=== PATIENT | male | born 1965 | race American Indian/Alaskan Native ===

== ENCOUNTER 2019-11-26 19:52 | Emergency (ER) | payer BC ==
[2019-11-26] MEDS ORDERED: levETIRAcetam 1000 MG/NS 0.75% 1,000 MG/100 ML BAG IV ONE (20:24)
--- NOTE | 2019-11-26 20:28 | Emergency Department Report ---
ED Seizure HPI - General Chief Complaint: Seizure Stated Complaint: PASSED OUT Time Seen by Provider: 11/26/19 20:19 Source: patient, family Mode of arrival: Ambulatory Limitations: No Limitations - History of Present Illness Initial Comments: Patient is 54 years old male with no significant past medical history. Patient presented to the ER accompanied by his sister for evaluation of possible seizure. Sister stated that patient was in the barbershop getting his hair cut when all of a sudden he started jerking, eyes rolled back and wet himself. Pa tient sister stated that this is continued for approximately 2 minutes and patient went to sleep after that. Patient stated that he had similar episode in 1998. Sister also stated that patient cousin in has history of seizure. MD Complaint: seizure -: Sudden, minutes(s) Description of Episode: loss of consciousness, tonic-clonic movement, bladder incontinence, post-event confusion Witnessed:: Yes Trauma: No Seizure History: none Possible Precipitating Event: none Associated Symptoms: denies other symptoms Treatments Prior to Arrival: none - Related Data Allergies Allergy/AdvReac Type Severity Reaction Status Date / Time No Known Allergies Allergy Verified 11/26/19 19:56 ED Review of Systems ROS: Stated complaint: PASSED OUT Other details as noted in HPI Comment: All other systems reviewed and negative Constitutional: denies: chills, fever Respiratory: denies: cough, shortness of breath Cardiovascular: denies: chest pain Gastrointestinal: denies: abdominal pain, nausea, vomiting Musculoskeletal: denies: back pain Neurological: denies: headache ED Physical Exam - General Limitations: No Limitations General appearance: alert, in no apparent distress - Head Head exam: Present: atraumatic, normocephalic, normal inspection - Eye Eye exam: Present: normal appearance - ENT ENT exam: Present: normal exam, normal orophraynx, mucous membranes moist - Neck Neck exam: Present: normal inspection, full ROM. Absent: tenderness, meningismus - Respiratory Respiratory exam: Present: normal lung sounds bilaterally - Cardiovascular Cardiovascular Exam: Present: regular rate, normal rhythm, normal heart sounds - GI/Abdominal GI/Abdominal exam: Present: soft, normal bowel sounds. Absent: distended, tenderness, guarding, rebound, rigid, organomegaly, mass, bruit, pulsatile mass, hernia - Extremities Exam Extremities exam: Present: normal inspection, full ROM, normal capillary refill - Back Exam Back exam: Present: normal inspection, full ROM. Absent: CVA tenderness (R), CVA tenderness (L) - Neurological Exam Neurological exam: Present: alert, oriented X3, CN II-XII intact, normal gait, reflexes normal. Absent: motor sensory deficit - Psychiatric Psychiatric exam: Present: normal mood - Skin Skin exam: Present: warm, intact, normal color ED Course Vital Signs 11/26/19 19:56 Temperature 97.5 F L Pulse Rate 70 Respiratory 18 Rate Blood Pressure 116/73 O2 Sat by Pulse 97 Oximetry ED Medical Decision Making - Lab Data Result diagrams: 11/26/19 20:53 11/26/19 21:38 - Radiology Data Radiology results: report reviewed - Medical Decision Making Patient is 54 years old male with no significant past medical history. Patient presented to the ER accompanied by his sister for evaluation of possible seizure. Sister stated that patient was in the barbershop getting his hair cut when all of a sudden he started jerking, eyes rolled back and wet himself. Patient sister stated that this is continued for approximately 2 minutes and patient went to sleep after that. Patient stated that he had similar episode in 1998. Sister also stated that patient cousin in has history of seizure. Patient remained asymptomatic in the ER. No seizure activity observed. Patient received Keppra [address] brain is negative for acute finding. Labs reviewed and is unremarkable. Patient given prescription for Keppra 500 mg twice a day and advised to follow-up with neurologist in the next 2 to 3 days and to return to the ER if he develop any new symptoms. Critical care attestation.: If time is entered above; I have spent that time in minutes in the direct care of this critically ill patient, excluding procedure time. ED Disposition Clinical Impression: Seizure Disposition: DC-01 TO HOME OR SELFCARE Is pt being admited?: No Condition: Stable Instructions: New-Onset Seizure in Adults (ED) Referrals: SOM CHOPRA MD [Referring] - 3-5 Days
[2019-11-26 21:04] LABS: Hemoglobin 12.8 gm/dl (11.8-15.2); Mean Corpuscular HGB Conc 34 % (32-34); Mean Corpuscular Volume 93 fl (84-94); Platelet Count 412 K/mm3 (140-440); Red Blood Count 4.07 M/mm3 (3.65-5.03); Red Cell Distribution Width 13.5 % (13.2-15.2)
--- NOTE | 2019-11-26 21:19 | Cat Scan Report ---
CT HEAD WITHOUT CONTRAST INDICATION: Seizure TECHNIQUE: All CT scans at this location are performed using CT dose reduction for ALARA by means of automated exposure control. COMPARISON: None available. FINDINGS: BRAIN: No hemorrhage or mass effect are seen. No evidence of acute infarction is noted. ORBITS: Normal as visualized. SOFT TISSUES OF HEAD: Normal. CALVARIUM: Normal. VISUALIZED PARANASAL SINUSES AND MASTOID AIR CELLS: Clear. ADDITIONAL FINDINGS: None. IMPRESSION: No acute intracranial abnormality. Signer Name: Shreyas Mena MD Signed: 11/26/2019 9:14 PM Workstation Name: [id number]
[2019-11-26 21:31] LABS: Alanine Aminotransferase TNR units/L (7-56); BUN/Creatinine Ratio TNR; Bilirubin,Direct TNR mg/dL (0-0.2); Blood Urea Nitrogen TNR mg/dL (9-20); Calcium TNR mg/dL (8.4-10.2)
[2019-11-26 21:32] LABS: Albumin TNR g/dL (3.9-5); Hemolysis Index TNR
[2019-11-26 22:20] LABS: Alanine Aminotransferase 80 units/L (7-56); Albumin 4.4 g/dL (3.9-5); BUN/Creatinine Ratio 13; Blood Urea Nitrogen 12 mg/dL (9-20); Calcium 8.9 mg/dL (8.4-10.2); Hemolysis Index 8
[2019-11-26 22:24] LABS: Basophils % (Manual) 0 % (0.0-1.8); Eosinophils % (Manual) 0 % (0.0-4.3); RBC Morphology Normal; Total Cells Counted 100
[2019-11-26 22:27] LABS: Bilirubin,Direct < 0.2 mg/dL (0-0.2)
[2019-11-27 04:22] VITALS: BP 119/72
== END 2019-11-27 00:10 | disposition home or self-care (01) ==
LOC: ED 19:52
DX: G40.909 Epilepsy, unspecified, not intractable, without status epilepticus (principal)
CPT/HCPCS: 36415; 70450; 80048; 80053; 80076; 85007; 85025; 96365; 99284; J1953; 80320; G0480

== ENCOUNTER 2021-02-11 09:00 | Emergency (ER) | payer BC, OTHER ==
--- NOTE | 2021-02-11 09:51 | XRay Report ---
CHEST PA AND LATERAL VIEWS INDICATION: CP, dizzy, WEAK,nervous. COMPARISON: None. FINDINGS: Support devices: None. Heart: Within normal limits. Lungs/Pleura: No acute pulmonary or pleural findings. IMPRESSION: 1. No acute findings. Signer Name: Zbigniew Mendez MD Signed: 02/11/2021 9:46 AM Workstation Name: [id number]
[2021-02-11 09:55] LABS: Basophils # (Auto) 0.1 K/mm3 (0.0-0.1); Basophils % (Auto) 0.8 % (0.0-1.8); Eosinophils % (Auto) 0.1 % (0.0-4.3); Hematocrit 35.3 % (35.5-45.6); Hemoglobin 11.8 gm/dl (11.8-15.2); Lymphocytes # (Auto) 1.6 K/mm3 (1.2-5.4); Lymphocytes % (Auto) 23.9 % (13.4-35.0); Mean Corpuscular HGB Conc 34 % (32-34); Mean Corpuscular Volume 96 fl (84-94); Monocytes # (Auto) 0.5 K/mm3 (0.0-0.8); Monocytes % (Auto) 7.5 % (0.0-7.3); Platelet Count 280 K/mm3 (140-440); Red Blood Count 3.68 M/mm3 (3.65-5.03); Red Cell Distribution Width 14.1 % (13.2-15.2)
[2021-02-11 10:19] LABS: Alanine Aminotransferase 28 units/L (7-56); Albumin 4.4 g/dL (3.9-5); BUN/Creatinine Ratio 16; Blood Urea Nitrogen 13 mg/dL (9-20); Calcium 8.9 mg/dL (8.4-10.2); Hemolysis Index 16
--- NOTE | 2021-02-11 10:54 | Event Note ---
ED Screening Note Date of service: 02/11/21 Time: 10:52 ED Screening Note: 55-year-old male presents to the ER today complaining of feeling dizzy, shaky all over/nervous, blurry vision and near syncope. Patient states that he woke up feeling bad this morning but symptoms got worse today while he was at work. He states he checked his blood pressure at work, it was 160/97 and recommend that he come to the ER. He reports one episode of vomiting this morning. He denies any chest pain or abdominal pain or headache, focal weakness, or speech changes. Patient used to smoke but stopped smoking 2 years ago. He admits to alcohol use but mainly on the weekends and on . He denies any illicit drug use. He states that he had a seizure 6 months ago, he was seen and evaluated here and was told it was likely related to stress but he was started on antiseizure medication but once he ran out he never followed up to get refills. This initial assessment/diagnostic orders/clinical plan/treatment(s) is/are subject to change based on patients health status, clinical progression and re- assessment by fellow clinical providers in the ED. Further treatment and workup at subsequent clinical providers discretion. Patient/guardian urged not to elope from the ED as their condition may be serious if not clinically assessed and managed. Initial orders include: Labs, EKG, chest x-ray
[2021-02-11 11:41] LABS: Free T4 (Free Thyroxine) 0.84 ng/dL (0.76-1.46)
[2021-02-11 12:06] LABS: Bilirubin,Urine NEG (Negative); Blood,Urine SM (Negative); Color,Urine Yellow (Yellow); Mucus,Urine 2+ /HPF
--- NOTE | 2021-02-11 14:19 | Emergency Department Report ---
ED Dizziness HPI - General Chief Complaint: Dizziness Stated Complaint: LIGHT HEADED, NERVOUS Time Seen by Provider: 02/11/21 10:42 Source: patient, EMS Mode of arrival: Ambulatory Limitations: No Limitations - History of Present Illness Initial Comments: 55-year-old male presents to ED with complaint of dizziness. Patient states he was at work, works as a bulldozer operator, when he began to feel dizzy, lightheaded and nervous/anxious. States his blood pressure was taken at work and it was elevated, 160/90. He reports 2 episodes of vomiting. Patient denies any headache, chest pain, shortness of breath. Patient reports history of seizures, no seizure activity today. Patient states he is compliant with his seizure medicines although he does not know the name of his seizure medication. Complaint: dizziness, lightheadedness -: This morning Timing: now resolved Description: lightheadedness History of Same: No Severity: moderate Improves With: nothing Worsens With: nothing Associated Symptoms: denies: chest pain, cough, fever/chills, shortness of breath, syncope, weakness - Related Data Previous Rx's Medication Instructions Recorded Last Taken Type levETIRAcetam [Keppra TAB] 500 mg PO BID #60 tablet 11/26/19 Unknown Rx Sulfamethoxazole/Trimethoprim 1 each PO BID 3 Days #6 tablet 02/11/21 Unknown Rx [Bactrim DS TAB] Allergies Allergy/AdvReac Type Severity Reaction Status Date / Time No Known Allergies Allergy Verified 02/11/21 09:20 ED Review of Systems ROS: Stated complaint: LIGHT HEADED, NERVOUS Other details as noted in HPI Comment: All other systems reviewed and negative Constitutional: denies: fever Respiratory: denies: cough, shortness of breath Cardiovascular: denies: chest pain, palpitations Gastrointestinal: vomiting Neurological: denies: headache ED Past Medical Hx - Social History Smoking Status: Former Smoker Substance Use Type: None - Medications Home Medications: Home Medications Medication Instructions Recorded Confirmed Last Taken Type levETIRAcetam [Keppra TAB] 500 mg PO BID #60 tablet 11/26/19 Unknown Rx Sulfamethoxazole/Trimethoprim 1 each PO BID 3 Days #6 tablet 02/11/21 Unknown Rx [Bactrim DS TAB] ED Physical Exam - General Limitations: No Limitations General appearance: alert, in no apparent distress - Head Head exam: Present: atraumatic, normocephalic - Eye Eye exam: Present: normal appearance, EOMI - ENT ENT exam: Present: mucous membranes moist - Neck Neck exam: Present: normal inspection - Respiratory Respiratory exam: Present: normal lung sounds bilaterally. Absent: respiratory distress - Cardiovascular Cardiovascular Exam: Present: regular rate, normal rhythm - GI/Abdominal GI/Abdominal exam: Present: soft. Absent: distended, tenderness - Extremities Exam Extremities exam: Present: normal inspection - Neurological Exam Neurological exam: Present: alert, oriented X3, CN II-XII intact, normal gait. Absent: motor sensory deficit - Psychiatric Psychiatric exam: Present: normal affect, normal mood - Skin Skin exam: Present: warm, dry, intact, normal color ED Course Vital Signs 02/11/21 02/11/21 02/11/21 09:17 16:15 17:20 Temperature 98.6 F Pulse Rate 72 64 71 Respiratory 18 14 14 Rate Blood Pressure 144/85 Blood Pressure 142/91 128/76 [Right] O2 Sat by Pulse 99 99 98 Oximetry ED Medical Decision Making - Lab Data Result diagrams: 02/11/21 09:40 02/11/21 09:40 - EKG Data -: EKG Interpreted by Ok EKG shows normal: sinus rhythm Rate: normal - EKG Data Interpretation: no acute changes - Radiology Data Radiology results: report reviewed, image reviewed - Medical Decision Making 55-year-old male presents to ED with complaint of dizziness. Patient states he was at work, works as a bulldozer operator, when he began to feel dizzy, lig htheaded and nervous/anxious. States his blood pressure was taken at work and it was elevated, 160/90. He reports 2 episodes of vomiting. Patient denies any headache, chest pain, shortness of breath. Patient reports history of seizures, no seizure activity today. Patient states he is compliant with his seizure medicines although he does not know the name of his seizure medication. Blood pressure slightly elevated upon arrival, but normalized without intervention. Patient has no neuro deficits on exam. Gait is normal. CT head is negative for any acute findings. EKG normal, troponin negative x2. UDS is positive for marijuana and amphetamine. Patient denies any known amphetamine use. I explained to patient that this may be contributing to his lightheadedness and feelings of anxiety. Patient will not require admission at this time. Outpatient follow-up advised, return precautions given. - Differential Diagnosis Intracranial abnormality, arrhythmia, anxiety, Critical care attestation.: If time is entered above; I have spent that time in minutes in the direct care of this critically ill patient, excluding procedure time. ED Disposition Clinical Impression: Amphetamine abuse, Dizziness, UTI (urinary tract infection) Disposition: TO HOME OR SELFCARE Is pt being admited?: No Condition: Stable Instructions: Amphetamines Use Disorder, Dizziness, [id number] Prescriptions: Sulfamethoxazole/Trimethoprim [Bactrim DS TAB] 1 each PO BID 3 Days #6 tablet Referrals: PRIMARY CARE, [Primary Care Provider] - 3-5 Days Forms: Work/School Release Form(ED) Time of Disposition: 15:58
[2021-02-11 14:32] LABS: Benzodiazepines Screen,Urine Negative; Cocaine Screen,Urine Negative; Methadone Screen,Urine Negative; Opiate Screen,Urine Negative
[2021-02-11 15:01] LABS: Amphetamine Screen,Urine Positive; Cannabinoid Screen,Urine Positive
--- NOTE | 2021-02-11 16:04 | Cat Scan Report ---
CT HEAD WITHOUT CONTRAST INDICATION / CLINICAL INFORMATION: dizziness. TECHNIQUE: All CT scans at this location are performed using CT dose reduction for ALARA by means of automated exposure control. COMPARISON: CT dated 11/26/19 FINDINGS: HEMORRHAGE: None. EXTRA-AXIAL SPACES: Normal in size and morphology for the patient's age. VENTRICULAR SYSTEM: Normal in size and morphology for the patient's age. CEREBRAL PARENCHYMA: No significant abnormality. No acute territorial infarct. MIDLINE SHIFT / HERNIATION: None. CEREBELLUM / BRAINSTEM: No significant abnormality. ORBITS: Normal as visualized. SOFT TISSUES: No significant abnormality. SKULL: No significant abnormality. PARANASAL SINUSES / MASTOID AIR CELLS: Normal as visualized. ADDITIONAL FINDINGS: None. IMPRESSION: 1. No acute intracranial abnormality. No significant change. Signer Name: Lauren Segovia MD Signed: 02/11/2021 4:00 PM Workstation Name: [id number]
[2021-02-11 17:33] VITALS: BP 128/76
--- NOTE | 2021-02-13 11:46 | Electrocardiograph Report ---
[facility] Test Date: 2021-02-11 Test Time: 09:22:30 Pat Name: ART GAN JR Department: Room: Gender: M In Store Demonstrator: TV : 1965 Requested By: KATJA ARMENDARIZ Order Number: [id number] Reading MD: Bassem Tapia Measurements Intervals [place] Rate: 68 P: 60 DE: 189 QRS: 63 QRSD: 94 T: 58 QT: 435 QTc: 464 Interpretive Statements Sinus rhythm No previous ECG available for comparison Electronically Signed On 02-13-2021 11:46:34 EDT by Bassem Tapia
== END 2021-02-11 17:20 | disposition home or self-care (01) ==
LOC: ED 09:00
DX: N39.0 Urinary tract infection, site not specified (principal); R42 Dizziness and giddiness; F15.10 Other stimulant abuse, uncomplicated; Z79.899 Other long term (current) drug therapy; Z87.891 Personal history of nicotine dependence
CPT/HCPCS: 36415; 70450; 71046; 80053; 80307; 80320; 81001; 82550; 84439; 84443; 84484; 85025; 87086; 93005; G0480